=== PATIENT | female | born 2000 | race Asian ===

== ENCOUNTER 2020-10-05 13:48 | Emergency (ER) | payer MEDICAID ==
[~2020-10-05] VITALS: Ht 167.6 cm; Wt 68.0 kg
--- NOTE | 2020-10-05 13:51 | NUR ---
Patient to ER bed 05 to gown for evaluation. Side rails up.
[2020-10-05 13:52] VITALS: BP_SYST 130
--- NOTE | 2020-10-05 14:15 | NUR ---
Patient placed on suicide precautions. Patient placed in room within close proximity to nurses' station for closer observation and monitoring. All clothing removed, placed in hospital gown. Metal detector wand used to further screen patient of any potential hazardous belongings. All belongings inventoried, placed in bags and removed from room. Cabinets locked. BP and pulse oximeter cords, and delivery table feeder leads removed.
--- NOTE | 2020-10-05 14:15 | NUR ---
Pt came to ER for SI, states she planned to overdose at 1000 once her roommate went to sleep. Pt resting in [facility] at this time, verbalizes plan and states she is depressed.
[2020-10-05 14:19] LABS: BASOPHILS # (AUTO) 0.1 K/uL (0.0-0.2); BASOPHILS % (AUTO) 0.9 % (0.0-2.0); EOSINOPHILS # (AUTO) 0.2 K/uL (0.0-0.4); EOSINOPHILS % (AUTO) 3.4 % (0.0-4.0); HEMOGLOBIN 15.1 g/dL (12.0-16.0); LYMPHOCYTES # (AUTO) 1.4 K/uL (1.0-5.5); LYMPHOCYTES % (AUTO) 20.5 % (20.5-51.5); MEAN CORPUSCULAR HEMOGLOBIN 31 pg (27-31); MEAN CORPUSCULAR HGB CONC 34 % (32-36); MEAN CORPUSCULAR VOLUME 90 fL (79.0-98.0); MONOCYTES # (AUTO) 0.4 K/uL (0.0-1.0); MONOCYTES % (AUTO) 5.1 % (1.7-9.3); NEUTROPHILS # (AUTO) 4.9 K/uL (1.8-7.7); NEUTROPHILS % (AUTO) 70.1 % (40.0-70.0); PLATELET COUNT (AUTO) 323 K/uL (130-430); RED BLOOD CELL COUNT(AUTO) 4.92 MIL/uL (4.2-6.2); RED CELL DISTRIBUTION WIDTH 13.7 % (9.0-15.0); WHITE BLOOD COUNT (AUTO) 7.1 K/uL (4.5-11.0)
--- NOTE | 2020-10-05 14:20 | NUR ---
ER at bedside examining patient.
[2020-10-05 14:35] LABS: ANION GAP 12 (5-15); CHLORIDE 103 mmol/L (98-107); CREATININE 0.84 mg/dL (0.55-1.30); GLUCOSE 83 mg/dL (70-99); POTASSIUM 3.8 mmol/L (3.5-5.1); SODIUM SERUM 139 mmol/L (136-145); UREA NITROGEN, BLOOD 9 mg/dL (8-21)
[2020-10-05 14:37] LABS: GFR AFRICAN AMERICAN 111 mL/min (>90)
[2020-10-05 14:40] LABS: BARBITURATE, URINE NEGATIVE (NEG <=200); BENZODIAZEPINE, URINE NEGATIVE (NEG <=150); CANNABINOID, URINE POSITIVE (NEG <=50); COCAINE, URINE NEGATIVE (NEG <=150); METHAMPHETAMINES SCREEN,URINE NEGATIVE (NEG <=500); OPIATE, URINE NEGATIVE (NEG <=100); PHENCYCLIDINE SCREEN,URINE NEGATIVE (NEG <=25); UR TRICYCLIC ANTIDEPRESSANTS NEGATIVE (NEG <=300); URINE AMPHETAMINE NEGATIVE (NEG <=500); URINE METHADONE NEGATIVE (NEG <=200); URINE OXYCODONE SCREEN NEGATIVE (NEG <=100); URINE PROPOXYPHENE SCREEN NEGATIVE (NEG <=300)
[2020-10-05 14:47] LABS: ALANINE AMINOTRANSFERASE 30 U/L (12-78); ASPARTATE AMINOTRANSFERASE 18 U/L (10-37); TOTAL BILIRUBIN 0.4 mg/dL (0.0-1.0)
[2020-10-05 14:55] LABS: ACETAMINOPHEN < 1 ug/mL (1-30); ALCOHOL, BLOOD < 3 mg/dL (<10); HCG,QUANTITATIVE 3 mIU/ML (0-6)
--- NOTE | 2020-10-05 15:30 | NUR ---
Pt resting in [facility], appears comfortable, calm and cooperative at this time
--- NOTE | 2020-10-05 17:00 | NUR ---
Pt speaking with [employer] doctor
--- NOTE | 2020-10-05 17:30 | NUR ---
[facility] PET TEAM, DAYANNA, AT BEDSIDE FOR ASSESSMENT. PATIENT WAS PLACED ON A 5150 HOLD FOR SI.
--- NOTE | 2020-10-05 19:22 | NUR ---
received report from PAPI WHITNEY for continuation of care.
--- NOTE | 2020-10-05 19:36 | NUR ---
Patient resting quietly. No acute distress noted. Vital signs within normal range.
--- NOTE | 2020-10-05 20:31 | NUR ---
pt given food tray with suicide precautions. pt tolerated well.
--- NOTE | 2020-10-05 21:27 | NUR ---
PT AMBULATED TO RESTROOM WITH STEADY GAIT.
--- NOTE | 2020-10-05 22:12 | NUR ---
PT SITTING UP IN [facility]. NO SIGNS OF ACUTE DISTRESS. WILL CONTINUE TO MONITOR.
--- NOTE | 2020-10-05 23:23 | NUR ---
Patient resting quietly. No acute distress noted. Vital signs within normal range.
--- NOTE | 2020-10-06 00:16 | NUR ---
PT ASLEEP IN [facility]. SITTER AT BEDSIDE. NO SIGNS OF ACUTE DISTRESS. WILL CONTINUE TO MONITOR.
--- NOTE | 2020-10-06 01:33 | NUR ---
PT ASLEEP IN [facility]. NO SIGNS OF ACUTE DISTRESS. WILL CONTINUE TO MONITOR.
--- NOTE | 2020-10-06 02:46 | NUR ---
PT ASLEEP IN [facility]. NO SIGNS OF ACUTE DISTRESS. WILL CONTINUE TO MONITOR.
--- NOTE | 2020-10-06 03:29 | NUR ---
Patient resting quietly. No acute distress noted. Vital signs within normal range.
--- NOTE | 2020-10-06 03:54 | NUR ---
PT ACCEPTED TO [facility], ROOM 106A, WITH DR. CASTRO.
--- NOTE | 2020-10-06 03:58 | NUR ---
CALLED AND GAVE REPORT TO PAPI COULTER AT [facility].
--- NOTE | 2020-10-06 04:02 | NUR ---
Patient to be transferred to [facility]. Is being transferred due to higher level of care. Receiving facility has accepting physician and available space. ER physician has signed transfer form. Patient or responsible alliance party has agreed to transfer and signed form. Patient belongings inventoried and will be sent with patient. Copy of nursing notes, lab reports, EKG, Physicians Orders and X-rays to be sent with patient. Report called to PAPI COULTER at receiving facility. Receiving physician is DR. CASTRO. [facility] ambulance service has been called for transfer. ETA is [id number].
--- NOTE | 2020-10-06 04:56 | NUR ---
report given to [facility] crew. pt placed on gurney, calm and cooperative. no signs of acute distress.
[2020-10-06 04:57] VITALS: BP_SYST 123
== END 2020-10-06 04:57 ==
LOC: SED 13:48
DX: R45.851 Suicidal ideations (principal); F32.9 Major depressive disorder, single episode, unspecified; F12.90 Cannabis use, unspecified, uncomplicated; F17.210 Nicotine dependence, cigarettes, uncomplicated; Z20.822 Contact with and (suspected) exposure to COVID-19
CPT/HCPCS: 36415; 80053; 80307; 84702; 85025; 87426; 99285; G0480; G0481; G0482